=== PATIENT | female | born 1985 | race African-American/Black ===

== ENCOUNTER 2016-12-06 22:46 | Inpatient (IN) | payer OTHER ==
[2016-12-06 23:18] VITALS: BP 131/77
[2016-12-06] MEDS ORDERED: PRENATAL TABLE1 EAC3 PO (23:20)
[2016-12-07 00:44] LABS: EOSINOPHIL (%) 1.4 % (0-5); EOSINOPHIL COUNT 0.1 K/uL (0-0.3); HEMATOCRIT 35.6 % (36.0-46.0); IMMATURE GRANULOCYTE (%) 0.5 % (0.0-0.7); IMMATURE GRANULOCYTE COUNT 0.1 K/uL; INSTRUMENT ABS NEUTROPHIL CT 6.7 K/uL; LYMPHOCYTE COUNT 2.1 K/uL (1.0-2.8); MCH 27.7 PG (29.0-34.0); MCV 86.6 FL (83-99); MEAN PLAT.VOLUME 10.8 uM^3 (9.5-12.4); MONOCYTE (%) 6.4 % (3-12); MONOCYTE COUNT 0.6 K/uL (0-0.8); NEUTROPHIL (%) 69.9 % (45-76); NEUTROPHIL COUNT 6.7 K/uL (1.8-6.4); PLATELET COUNT 193 K/uL (156-360); RBC DIS.WIDTH-CV 12.6 % (11.8-14.6); RBC DIS.WIDTH-SD 39.8 % (39-53); RED BLOOD COUNT 4.11 M/uL (3.80-5.20); WHITE BLOOD COUNT 9.6 K/uL (4.1-10.2)
[2016-12-07 00:50] VITALS: BP 122/92
[2016-12-07 01:05] VITALS: BP 129/75
[2016-12-07] MEDS ORDERED: IBUPROFEN800 MG PO (01:11)
[2016-12-07 01:20] VITALS: BP 118/64
[2016-12-07 01:35] VITALS: BP 120/71
[2016-12-07 07:22] VITALS: BP 109/65
[2016-12-07 23:59] VITALS: BP 101/56
[2016-12-08 14:23] VITALS: BP 117/66
[2016-12-09 07:24] VITALS: BP 117/57
== END 2016-12-09 10:50 | disposition home or self-care (01) | DRG 775 ==
LOC: LDRP-OP 22:46 → 2WEST 22:47 → LDRP-OP 01-19 11:09
PROVIDERS: Nurse Practitioner
DX: O99.824 Streptococcus B carrier state complicating childbirth (principal); Z37.0 Single live birth; Z3A.38 38 weeks gestation of pregnancy
CPT/HCPCS: 85025; G0378; J2540